=== PATIENT | female | born 1990 | race Caucasian/White ===

== ENCOUNTER → 2016-11-12 | Outpatient (CLI) | payer BC | END | disposition home or self-care (01) | LOC: MW.CHFP 10:53 | PROVIDERS: ATTEND Nurse Practitioner Family | DX: J02.9 Acute pharyngitis, unspecified (principal) | CPT/HCPCS: 87081; 87880 ==

== ENCOUNTER 2019-08-06 09:13 | Day surgery (SDC) | payer BC ==
--- NOTE | 2019-08-06 13:52 | PCM.PREANE ---
Preanesthetic Assessment - Anesthesia/Transfusion/Family Hx Anesthesia History: No Prior Anesthesia Family History of Anesthesia Reaction: No Transfusion History: No Prior Transfusion(s) - Review of Systems General: No Symptoms Pulmonary: No Symptoms Cardiovascular: No Symptoms Gastrointestinal: No Symptoms Neurological: No Symptoms Other: Reports: None - Physical Assessment NPO Status Date: 08/05/19 Vital Signs: Last Vital Signs Temp 97.0 F 08/06/19 13:45 Pulse 82 08/06/19 13:45 Resp 14 08/06/19 13:45 BP 116/67 08/06/19 13:45 Pulse Ox 100 08/06/19 13:45 Height: 5 ft 10 in Weight: 70.76 kg ASA Class: 2 Mental Status: Alert & Oriented x3 Airway Class: Mallampati = 1 Dentition: Reports: Normal Dentition ROM/Head Extension: Full Lungs: Clear to Auscultation, Normal Respiratory Effort Cardiovascular: Regular Rate, Regular Rhythm - Lab Values: Laboratory Last Values WBC 4.69 K/uL (4.0-11.0) 08/06/19 09:37 RBC 4.51 M/uL (4.30-5.90) 08/06/19 09:37 Hgb 12.9 g/dL (12.0-16.0) 08/06/19 09:37 Hct 39.1 % (36.0-46.0) 08/06/19 09:37 MCV 86.7 fL (80.0-98.0) 08/06/19 09:37 MCH 28.6 pg (27.0-32.0) 08/06/19 09:37 MCHC 33.0 g/dL (31.0-37.0) 08/06/19 09:37 RDW Std Deviation 40.7 fl (28.0-62.0) 08/06/19 09:37 RDW Coeff of Alisa 13 % (11.0-15.0) 08/06/19 09:37 Plt Count 254 K/uL (150-400) 08/06/19 09:37 MPV 9.00 fL (7.40-12.00) 08/06/19 09:37 Nucleated RBC % 0.0 /100WBC 08/06/19 09:37 Nucleated RBCs # 0 K/uL 08/06/19 09:37 Blood Type O POSITIVE 08/06/19 09:37 Antibody Screen NEGATIVE 08/06/19 09:37 - Allergies Allergies/Adverse Reactions: Allergies Allergy/AdvReac Type Severity Reaction Status Date / Time No Known Allergies Allergy Verified 08/05/19 11:06 - Blood Blood Available: No - Anesthesia Plan Pre-Op Medication Ordered: None - Acknowledgements Anesthesia Type Planned: General Anesthesia Pt an Appropriate Candidate for the Planned Anesthesia: Yes Alternatives and Risks of Anesthesia Discussed w Pt/Guardian: Yes Pt/Guardian Understands and Agrees with Anesthesia Plan: Yes PreAnesthesia Questionnaire - Past Health History Medical/Surgical History: Denies Medical/Surgical History HEENT History: Reports: Other (See Below) Other HEENT History: wears glasses [employer] History: Reports: Musculoskeletal History: Reports: Other (See Below) Other Musculoskeletal History: hx of congenital hip dysplasia - Past Surgical History Head Surgeries/Procedures: Reports: None - SUBSTANCE USE Smoking Status *Q: Never Smoker Recreational Drug Use History: No - HOME MEDS Home Medications: Home Meds Pnv No.95/Ferrous Fum/Folic AC [ Vitamin Tablet] 1 tab PO DAILY [History]
[2019-08-06] MEDS ORDERED: Lidocaine 2% 5 ML SDV ONE (14:38)
[2019-08-06] MEDS ORDERED: fentaNYL 100 MCG/2 ML SDV ONE (14:39)
[2019-08-06] MEDS ORDERED: Midazolam 1 MG/ML 2 ML SDV ONE (14:39)
[2019-08-06] MEDS ORDERED: Propofol 200 MG/20 ML SDV ONE (14:39)
[2019-08-06] MEDS ORDERED: Ondansetron 4 MG/2 ML SDV ONE (14:54)
[2019-08-06] MEDS ORDERED: Ketorolac 30 MG/ML SDV ONE (15:07)
[2019-08-06] MEDS ORDERED: fentaNYL 100 MCG/2 ML SDV IVPUSH PRN (15:22)
--- NOTE | 2019-08-06 15:24 | PCM.OPNOTE ---
- General Post-Op/Procedure Note Date of Surgery/Procedure: 08/06/19 Operative Procedure(s): suction dilatation and curettage Findings: uterus mid position sounds to 10 cm, boggy prior to procedure, firm 8 weeks size following procedure. Pre Op Diagnosis: incomplete SAB Post-Op Diagnosis: Same Anesthesia Technique: General ET Tube Primary Surgeon: Angela Gomez Anesthesia Provider: Vicky Stuart Pathology: products of conception Fluid Replacement, Intraop: 600 EBL in mLs: 20 Complications: None Known Condition: Good
--- NOTE | 2019-08-06 15:37 | PCM.POSTAN ---
POST ANESTHESIA ASSESSMENT - MENTAL STATUS Mental Status: Alert, Oriented - VITAL SIGNS Vital Signs: Last Vital Signs Temp 97.5 F 08/06/19 15:14 Pulse 74 08/06/19 15:29 Resp 12 08/06/19 15:29 BP 89/54 L 08/06/19 15:29 Pulse Ox 98 08/06/19 15:29 - RESPIRATORY Respiratory Status: Respiratory Rate WNL, Airway Patent, O2 Saturation Stable - CARDIOVASCULAR CV Status: Pulse Rate WNL, Blood Pressure Stable - GASTROINTESTINAL GI Status: No Symptoms - PAIN Pain Score: 0 - POST OP HYDRATION Hydration Status: Adequate & Stable
[2019-08-06 16:26] VITALS: BP 96/51; PULSE 54
--- NOTE | 2019-08-06 16:41 | PCM48HPAN ---
Post Anesthesia Note - EVALUATION WITHIN 48HRS OF ANESTHETIC Vital Signs in Normal Range: Yes Patient Participated in Evaluation: Yes Respiratory Function Stable: Yes Airway Patent: Yes Cardiovascular Function Stable: Yes Hydration Status Stable: Yes Pain Control Satisfactory: Yes Nausea and Vomiting Control Satisfactory: Yes Mental Status Recovered: Yes Vital Signs: Last Vital Signs Temp 97.3 F 08/06/19 15:40 Pulse 54 L 08/06/19 16:25 Resp 14 08/06/19 16:25 BP 96/51 L 08/06/19 16:25 Pulse Ox 100 08/06/19 16:25
--- NOTE | 2019-08-06 16:48 | OR ---
SURGEON: Angela Gomez M.D. DATE OF PROCEDURE: 08/06/2019 PREOPERATIVE DIAGNOSIS: Incomplete spontaneous with bleeding. POSTOPERATIVE DIAGNOSIS: Incomplete spontaneous with bleeding. PROCEDURE: Suction dilatation and curettage. PRIMARY SURGEON: Angela Gomez MD. ANESTHESIA: General endotracheal. FLUIDS: 600 mL of crystalloid. ESTIMATED BLOOD LOSS: 20 mL. FINDINGS: Uterus mid position, sounded to 10 cm. Prior to the procedure, mid position boggy 10-week size uterus. Postoperatively, 8-week size firm uterus. COMPLICATIONS: None known. DISPOSITION: Stable to recovery. PATHOLOGY: Products of conception. BRIEF HISTORY: This is a 29-year-old female at routine obstetric visit. She was diagnosed with a 9-week missed , and she was willing to do Cytotec. She received 2 doses of Cytotec. She had some irregular bleeding and occasional clot, but did not pass any significant amount of tissue; and therefore, I did offer to proceed with a suction D and C. Ultrasound was performed this morning and confirmed retained products of conception and risks of the D and C were reviewed including bleeding, infection, uterine perforation with injury to surrounding organs, risk of Asherman syndrome, and risk of anesthesia. Understanding all these risks, she does desire to proceed. DESCRIPTION OF PROCEDURE: With the patient in dorsal lithotomy position, under adequate general endotracheal anesthesia, the perineum and vagina were prepped with Betadine and draped in usual fashion for vaginal surgery. SCDs were in place. Bladder had been drained and a bimanual examination was performed with findings as noted above. Speculum was placed in the vagina. The cervix was grasped with an Allis clamp and the uterus was sounded to 10 cm. The cervix was dilated to a 10 mm Hegar dilator. A 10 mm suction cannula was placed to the uterine fundus, and with pressure in the green zone, the cannula was repetitively turned and retracted until no further tissue was obtained. Sharp curettage at the 12, 3, 6, and 9 o'clock position revealed a good uterine cry. No further tissue. One additional pass was taken with the suction curette and all the instruments were removed from the vagina. Final sponge, needle, and instrument counts were reported as correct. There were no complications. The patient was transferred to Recovery in good condition. VIANNEY / LINDSEY /[id number]
== END 2019-08-06 16:38 | disposition home or self-care (01) ==
LOC: MW.SDS 09:13
PROVIDERS: ATTEND Obstetrics & Gynecology
DX: O03.1 Delayed or excessive hemorrhage following incomplete spontaneous abortion (principal); N83.202 Unspecified ovarian cyst, left side
CPT/HCPCS: 36415; 59812; 85027; 86850; 86900; 86901; 88305; J1885; J2001; J2250; J2405; J2704; J3010; 01965